=== PATIENT | female | born 1985 | race Two or more races ===

== ENCOUNTER 2018-05-31 17:43 | Emergency (ER) | payer BC ==
[2018-05-31] MEDS: DIAZEPAM 5 MG TAB PO (20:13)
[2018-05-31] MEDS: KETOROLAC 30 MG INJ IM (20:14)
== END 2018-05-31 22:49 | disposition home or self-care (01) ==
LOC: FTE 17:43
DX: M50.30 Other cervical disc degeneration, unspecified cervical region (principal)
CPT/HCPCS: 72040; 81025; 99283-25

== ENCOUNTER 2018-08-31 01:26 | Emergency (ER) | payer BC ==
[2018-08-31 03:31] LABS: ADD MAN DIFF? NO
[2018-08-31] MEDS: ONDANSETRON 4 MG INJ IV (03:42)
[2018-08-31] MEDS: SOD CHLORIDE 0.9% 1,000 ML IV (03:42)
[2018-08-31] MEDS: LIDOCAINE/MYLANTA 40 ML BTL PO (03:43)
[2018-08-31] MEDS: FAMOTIDINE 20 MG TAB PO (03:43)
[2018-08-31] MEDS: BELLADONNA/PHENOBARBITAL TAB PO (03:43)
[2018-08-31 03:48] LABS: ADD UMIC NO; UR ASCORBIC ACID NEGATIVE (NEGATIVE); UR BILIRUBIN (Dip) NEGATIVE (NEGATIVE); UR BLOOD (Dip) NEGATIVE (NEGATIVE); UR CLARITY CLEAR (CLEAR); UR COLOR STRAW (YELLOW); UR GLUCOSE (Dip) NEGATIVE (NEGATIVE); UR KETONES (Dip) NEGATIVE (NEGATIVE); UR LEUKOCYTE ESTERASE (Dip) NEGATIVE Leu/ul (NEGATIVE); UR NITRITE (Dip) NEGATIVE (NEGATIVE); UR TOTAL PROTEIN (Dip) NEGATIVE (NEGATIVE); UR UROBILINOGEN (Dip) NEGATIVE (NEGATIVE)
[2018-08-31 03:53] LABS: ALANINE AMINOTRANSFERASE 23 IU/L (13-69); ALBUMIN 4.5 g/dl (3.3-4.9); ALBUMIN/GLOBULIN RATIO 1.21; ALKALINE PHOSPHATASE 73 IU/L (42-121); ANION GAP 10 (5-13); ASPARTATE AMINO TRANSFERASE 20 IU/L (15-46); BILIRUBIN,INDIRECT 0.4 mg/dl (0-1.1); BILIRUBIN,TOTAL 0.4 mg/dl (0.2-1.3); BLOOD UREA NITROGEN 9 mg/dl (7-20); CALCIUM 9.6 mg/dl (8.4-10.2); CARBON DIOXIDE 28 mmol/L (21-31); CHLORIDE 106 mmol/L (97-110); CREATININE 0.59 mg/dl (0.44-1.00); Estimated GFR > 60 mL/min (>60); GLUCOSE 108 mg/dl (70-220); LIPASE 77 U/L (23-300); POTASSIUM 4.1 mmol/L (3.5-5.1); SODIUM 144 mmol/L (135-144); TOTAL PROTEIN 8.2 g/dl (6.1-8.1)
[2018-08-31 03:54] LABS: BASOPHIL # 0.1 10^3/ul (0.0-0.1); BASOPHILS % 0.6 % (0.0-2.0); EOSINOPHILS # 0.2 10^3/ul (0.0-0.5); EOSINOPHILS % 1.7 % (0.0-7.0); HEMATOCRIT 36.3 % (37.0-47.0); LYMPHOCYTES # 2.4 10^3/ul (0.8-2.9); LYMPHOCYTES % 23.8 % (15.0-51.0); MEAN CORPUSCULAR HEMOGLOBIN 28.6 pg (29.0-33.0); MEAN CORPUSCULAR HGB CONC 33.1 g/dl (32.0-37.0); MEAN CORPUSCULAR VOLUME 86.6 fl (82.0-101.0); MEAN PLATELET VOLUME 10.7 fl (7.4-10.4); MONOCYTE # 0.7 10^3/ul (0.3-0.9); MONOCYTES % 6.9 % (0.0-11.0); NEUTROPHIL # 6.9 10^3/ul (1.6-7.5); NEUTROPHILS % 66.8 % (39.0-77.0); PLATELET COUNT 335 10^3/UL (140-415); RED BLOOD COUNT 4.19 10^6/ul (4.20-5.40); RED CELL DISTRIBUTION WIDTH 12.7 % (11.5-14.5)
[2018-08-31 03:54] LABS: WHITE BLOOD COUNT 10.3 10^3/ul (4.8-10.8)
[2018-08-31 04:04] LABS: TROPONIN-I < 0.012 ng/ml (0.000-0.120)
[2018-08-31] MEDS: ALPRAZOLAM 0.25 MG TAB PO (04:36)
== END 2018-08-31 04:54 | disposition home or self-care (01) ==
LOC: E/R 01:26
DX: R42 Dizziness and giddiness (principal); F41.9 Anxiety disorder, unspecified
CPT/HCPCS: 36415; 80053; 81003; 81025; 83690; 84484; 85025; 93005; 96374; 99284-25

== ENCOUNTER 2019-01-03 22:09 | Emergency (ER) | payer BC ==
[2019-01-04 00:05] LABS: URINE BLOOD (Dip) POC Trace-lysed (NEGATIVE); URINE GLUCOSE (Dip) POC Negative (NEGATIVE); URINE KETONES (Dip) POC Negative (NEGATIVE); URINE LEUKOCYTE EST (Dip) POC Negative (NEGATIVE); URINE NITRITE (Dip) POC Negative (NEGATIVE); URINE TOTAL PROTEIN POC Negative (NEGATIVE)
== END 2019-01-04 00:38 | disposition home or self-care (01) ==
LOC: E/R 01-04 00:38
DX: M54.12 Radiculopathy, cervical region (principal); M54.16 Radiculopathy, lumbar region; R07.9 Chest pain, unspecified
CPT/HCPCS: 81003; 81025; 93005; 99283-25